=== PATIENT | female | born 1975 | race Two or more races ===

== ENCOUNTER 2018-01-09 20:18 | Emergency (ER) | payer MEDICAID ==
[~2018-01-09] VITALS: Ht 157.5 cm; Wt 64.9 kg
[2018-01-09 20:22] VITALS: BP 133/79
--- NOTE | 2018-01-09 21:52 | NUR ---
[employer] [employer] BEDSIDE FOR X-RAY
[2018-01-09] MEDS ORDERED: ACETAMINOPHEN ES 500 MG TABLET ONE (22:05)
[2018-01-09] MEDS ORDERED: IBUPROFEN 600 MG TABLET PO ONE (22:06)
[2018-01-09] MEDS ORDERED: CEPHALEXIN MONOHYDRATE 500 MG CAPSULE PO ONE (22:06)
[2018-01-09] MEDS: ACETAMINOPHEN 325 MG TABLET PO ONE (22:09)
[2018-01-09] MEDS: IBUPROFEN 600 MG TABLET PO ONE (22:09)
[2018-01-09] MEDS: CEPHALEXIN MONOHYDRATE 500 MG CAPSULE PO ONE (22:09)
== END 2018-01-09 22:32 | disposition home or self-care (01) ==
LOC: ER 20:20
DX: L03.113 Cellulitis of right upper limb (principal); B34.9 Viral infection, unspecified; F41.9 Anxiety disorder, unspecified; F15.10 Other stimulant abuse, uncomplicated; Z59.0 Homelessness
CPT/HCPCS: 73120-TC; A4606; Z7610

== ENCOUNTER 2018-02-25 23:12 | Emergency (ER) | payer MEDICAID ==
--- NOTE | 2018-02-25 23:40 | NUR ---
CALLED PT'S NAME THREE TIMES, NO RESPONS. WILL TRY AGAIN AT A LATER TIME.
--- NOTE | 2018-02-26 00:30 | NUR ---
CALLED PT'S NAME THREE TIMES, NO RESPONS. PT LEFT BEFORE BEING TRIAGED.
== END 2018-02-26 00:31 | disposition left against medical advice (07) ==
LOC: ER 23:16
DX: Z53.21 Procedure and treatment not carried out due to patient leaving prior to being seen by health care provider (principal)

== ENCOUNTER 2018-08-15 01:34 | Emergency (ER) | payer MEDICAID ==
[~2018-08-15] VITALS: Ht 157.5 cm; Wt 69.4 kg
--- NOTE | 2018-08-15 01:45 | NUR ---
BIBSELF C/O VAGINAL PAIN AND ITCHING X1 MONTH. PT ALSO C/O BLISTERS X1 MONTH. DENIES VAGINAL BLEEDING, DISCHARGE, DYSURIA, HEMATURIA, ABDOMINAL PAIN. PT AAOX4. RESPIRATIONS EVEN AND UNLABORED. ABLE TO AMBULATE WITH STEADY GAIT. WILL CONTINUE TO MONITOR.
[2018-08-15 02:11] VITALS: BP 124/86
== END 2018-08-15 02:11 | disposition home or self-care (01) ==
LOC: ER 01:38
DX: A63.0 Anogenital (venereal) warts (principal); F17.200 Nicotine dependence, unspecified, uncomplicated; Z98.890 Other specified postprocedural states
CPT/HCPCS: Z7502